=== PATIENT | male | born 1940 | race African-American/Black ===

== ENCOUNTER 2017-04-29 00:01 | Emergency (ER) | payer OTHER ==
[~2017-04-29] VITALS: Ht 175.3 cm; Wt 79.0 kg
[~2017-04-29 00:01] MED LIST: ATOR-2 PO; CLOP75TA33 PO; LISI-604 PO; METF10002 PO; TAMS0.4C31 PO
[2017-04-29 03:12] VITALS: BP 151/66
== END 2017-04-29 03:25 | disposition home or self-care (01) ==
LOC: ER 00:09
DX: T83.038A Leakage of other urinary catheter, initial encounter (principal); N99.522 Malfunction of incontinent external stoma of urinary tract; E11.9 Type 2 diabetes mellitus without complications; I10 Essential (primary) hypertension; Z86.73 Personal history of transient ischemic attack (TIA), and cerebral infarction without residual deficits
CPT/HCPCS: 51702; 99284; A4315

== ENCOUNTER 2017-05-27 18:44 | Emergency (ER) | payer OTHER ==
[~2017-05-27] VITALS: Ht 175.3 cm; Wt 66.0 kg
[2017-05-27] MEDS ORDERED: FINA5TAB11 PO (18:58)
[2017-05-27] MEDS ORDERED: MAGN400T27 PO (18:58)
[2017-05-27] MEDS ORDERED: CIPR-213 PO (18:58)
[2017-05-27] MEDS ORDERED: SODIUM CHLORIDE 0.9% 500 ML IV ONE (19:43)
[2017-05-27 20:27] LABS: BASOPHILS % 0.5 % (0.0-2.0); EOSINOPHILS % 4.4 % (0.0-5.0); HEMATOCRIT. 39.6 % (42.0-52.0); HEMOGLOBIN. 13.2 g/dL (14.0-18.0); LYMPHOCYTES % 27.5 % (20.0-50.0); MEAN CORPUSCULAR HEMOGLOBIN 25.7 pg (28.0-32.0); MEAN CORPUSCULAR VOLUME 77.2 fL (80.0-94.0); MEAN PLATELET VOLUME 8.1 fl (7.4-10.4); MONOCYTES % 9.3 % (2.0-8.0); NEUTROPHILS % 58.3 % (40.0-76.0); PLATELET 233 x1000/uL (130-400); RED BLOOD CELL COUNT 5.14 mill/uL (4.7-6.1); RED CELL DISTRIBUTION WIDTH 15.5 % (11.6-14.6)
[2017-05-27 20:28] LABS: CHLORIDE 107 mEq/L (98-107)
[2017-05-27 20:33] LABS: CARBON DIOXIDE 22 mEq/L (21-32)
[2017-05-27 20:41] LABS: CLARITY URINE TURBID (CLEAR); COLOR URINE YELLOW (YELLOW); GLUCOSE URINE NEGATIVE (NEGATIVE); KETONES URINE NEGATIVE (NEGATIVE); LEUKOCYTE ESTERASE URINE 1+ (NEGATIVE); NITRITE URINE NEGATIVE (NEGATIVE); OCCULT BLOOD URINE 2+ (NEGATIVE); PH URINE 5.5 (4.5-8.0); PROTEIN URINE 4+ (NEGATIVE); SPECIFIC GRAVITY URINE 1.026 (1.005-1.030); UROBILINOGEN URINE 0.2 E.U./dL (0.2-1.0)
[2017-05-27 22:25] VITALS: BP 128/78
== END 2017-05-27 22:40 | disposition home or self-care (01) ==
LOC: ER 22:39
DX: N39.0 Urinary tract infection, site not specified (principal); R53.1 Weakness; I10 Essential (primary) hypertension; E11.9 Type 2 diabetes mellitus without complications; N40.0 Benign prostatic hyperplasia without lower urinary tract symptoms; Z86.73 Personal history of transient ischemic attack (TIA), and cerebral infarction without residual deficits
CPT/HCPCS: 36415; 71010; 80053; 81001; 85025; 87077; 87086; 87186; 96360; 99285; J7030

== ENCOUNTER 2018-10-04 16:50 | Emergency (ER) | payer OTHER ==
[~2018-10-04] VITALS: Ht 175.3 cm; Wt 64.0 kg
[~2018-10-04 16:50] MED LIST changes: +ASPI-1158 PO; -ATOR-2 PO; +ATOR10TA69 PO; +FINA5TAB11 PO; -LISI-604 PO; -METF10002 PO
[2018-10-04] MEDS ORDERED: LINA5TAB MT (17:07)
[2018-10-04] MEDS ORDERED: NEBI10TA2 MT (17:07)
[2018-10-04] MEDS ORDERED: LUBI8CAP MT (17:07)
[2018-10-04 18:31] LABS: INR 1.2; PROTHROMBIN TIME 11.6 sec (9.1-11.1)
[2018-10-04 18:32] LABS: CHLORIDE 106 mEq/L (98-107)
[2018-10-04 18:36] LABS: BASOPHILS % 0.7 % (0.0-2.0); HEMOGLOBIN. 11.8 g/dL (14.0-18.0); LYMPHOCYTES % 23.9 % (20.0-50.0); MEAN CORPUSCULAR HEMOGLOBIN 27.1 pg (28.0-32.0); MEAN CORPUSCULAR VOLUME 82.6 fL (80.0-94.0); MEAN PLATELET VOLUME 8.2 fl (7.4-10.4); MONOCYTES % 7.5 % (2.0-8.0); NEUTROPHILS % 63.9 % (40.0-76.0); PLATELET 180 x1000/uL (130-400); RED BLOOD CELL COUNT 4.36 mill/uL (4.7-6.1); RED CELL DISTRIBUTION WIDTH 14.2 % (11.6-14.6)
[2018-10-04 18:48] LABS: CLARITY URINE CLOUDY (CLEAR); COLOR URINE YELLOW (YELLOW); KETONES URINE NEGATIVE (NEGATIVE); LEUKOCYTE ESTERASE URINE 3+ (NEGATIVE); NITRITE URINE NEGATIVE (NEGATIVE); OCCULT BLOOD URINE TRACE (NEGATIVE); PROTEIN URINE NEGATIVE (NEGATIVE); SPECIFIC GRAVITY URINE 1.015 (1.005-1.030); UROBILINOGEN URINE 0.2 E.U./dL (0.2-1.0)
[2018-10-04] MEDS ORDERED: CEFTRIAXONE 1 G PREMIX 50 ML IV ONE (19:15)
[2018-10-04] MEDS ORDERED: ACETAMINOPHEN 325MG TABLET PO ONE (19:30)
[2018-10-04] MEDS ORDERED: FLUCONAZOLE 100MG TABLET PO ONE (19:30)
[2018-10-04] MEDS ORDERED: FLUCONAZOLE 150MG TABLET PO STA (20:10)
[2018-10-04] MEDS ORDERED: SODIUM CHLORIDE 0.9% 1,000 ML IV ONE (20:15)
[2018-10-04 21:00] VITALS: BP 120/57
== END 2018-10-04 22:00 | disposition home or self-care (01) ==
LOC: ER 16:50
DX: N39.0 Urinary tract infection, site not specified (principal); N28.9 Disorder of kidney and ureter, unspecified; M54.9 Dorsalgia, unspecified; I10 Essential (primary) hypertension; E11.9 Type 2 diabetes mellitus without complications; Z79.82 Long term (current) use of aspirin; Z86.73 Personal history of transient ischemic attack (TIA), and cerebral infarction without residual deficits
CPT/HCPCS: 36415; 80053; 81003; 83690; 85025; 85610; 87077; 87086; 87186; 96365; 99283; J0696; J7030